=== PATIENT | male | born 1980 | race Caucasian/White ===

== ENCOUNTER 2021-08-03 12:40 | Emergency (ER) | payer OTHER, SELFPAY ==
[2021-08-03] VITALS (22 sets, daily range): BP systolic 143–183; BP diastolic 80–96; PULSE 73–92; RESP 16–18; O2SAT 96–100; BMI 36.6
--- NOTE | 2021-08-03 12:51 | XRR_ITS ---
PROCEDURE INFORMATION: Exam: XR Right Knee Exam date and time: 08/03/2021 12:51 PM Age: 40 years old Clinical indication: Pain; Knee; Right; Additional info: Right knee pain TECHNIQUE: Imaging protocol: XR Right knee. Views: 3 views. COMPARISON: No relevant prior studies available. FINDINGS: Bones/joints: There is a small joint effusion with some fluid in the suprapatellar bursa. No significant bony abnormality.. Soft tissues: Normal. XR/XR knee RT 3V* [id number] IMPRESSION: Small joint effusion. No acute bony abnormality.
--- NOTE | 2021-08-03 13:01 | ED_ITS ---
HPI - Extremity Problem General: Chief complaint: Extremity Injury, Lower Stated complaint: RIGHT KNEE PAIN S/P FALL Time Seen by Provider: 08/03/21 12:41 Course Vital Signs: Vital signs: Vital Signs Pulse Rate 74 08/03/21 12:45 Respiratory Rate 16 08/03/21 12:45 Blood Pressure 183/89 08/03/21 12:45 Pulse Oximetry 98 08/03/21 12:45 Discharge Plan Discharge Condition: Stable Coding Level of Care Code ED Registered Pharmacist for [facility]a Post
--- NOTE | 2021-08-03 13:06 | ED_ITS ---
HPI - General Adult General: Chief complaint: Extremity Injury, Lower Stated complaint: RIGHT KNEE PAIN S/P FALL Time Seen by Provider: 08/03/21 12:41 History of Present Illness: Patient is a 40-year-old male without any significant past medical history presents emergency room with complaints of right knee pain after pain off the edge of a loading dock and dropping his feet 3 feet. Patient felt a pop in his knee and since then has been unable to bear weight on the right knee. Patient denies any other focal areas of pain denies any other injuries or fall. Patient has no chest pain, shortness breath palpitation or lightheadedness prior to the episode of fall. Patient is on any blood thinner. Onset: 2 hrs ago Duration:2 hrs Location:home Severity:moderate/severe Associated symptoms: Deny chest pain, dyspnea, nausea, rash, palpitations or vomiting Review of Systems Const: Denies: fever(s) or chills Eyes: Denies: change in vision ENMT: Denies: mouth pain Card: Denies: chest pain or palpitations Resp: Denies: dyspnea or non-productive cough GI: Denies: abdominal pain, nausea, vomiting or diarrhea : Denies: dysuria Musc: Reports: extremity pain (R knee pain and swelling) Skin/Breast: Denies: rash or new lesions Neuro: Denies: weakness in extremities Psych: Reports: other (Normal mood) Bandar/Lymph: Denies: easy bruising PFSH ED PFSH: Family History (Updated 08/03/21 @ 13:08 by Miroslava Baltazar MD) Denies family history of CAD (coronary artery disease) Anesthesia complication Social History (Updated 08/03/21 @ 13:08 by Miroslava Baltazar MD) Smoking and tobacco status: never smoked Alcohol intake: never Physical Exam Const: COMMON NORMALS: alert HENMT: COMMON NORMALS: atraumatic HEAD & SCALP: atraumatic MOUTH: moist mucous membranes not abnormal Eye: COMMON NORMALS: EOMs intact bilaterally and conjunctivae normal CONJUNCTIVA: Yes conjunctivae normal Neck/C-Spine: COMMON NORMALS: full ROM and supple Resp: COMMON NORMALS: normal respiratory effort and clear to auscultation bilaterally AUSCULTATION: clear to auscultation bilaterally Cardio: COMMON NORMALS: regular rate RATE: regular rate GI: COMMON NORMALS: Soft to palpation and non-tender PALPATION: Yes Soft to palpation Extremity: NARRATIVE EXTREMITY EXAM: + Right knee tenderness to palpation, right knee swelling, decreased range of motion of right knee due to pain. Patient has 2+ DP/PT pulses on the right side, cap refill less than 3 seconds, neurovascular exam of the right lower extremity intact. No other focal area of tenderness palpation other than right knee. Neuro: SENSORIUM/ORIENTATION: Yes alert MOTOR EXAM: No Abnormal motor strength present and Other motor observations present (no focal motor deficits) Psych: COMMON NORMALS: speech normal SPEECH: Yes normal speech MOOD & AFFECT: Yes euthymic mood Course Vital Signs: Vital signs: Vital Signs Pulse Rate 92 08/03/21 15:28 Respiratory Rate 18 08/03/21 15:28 Blood Pressure 154/81 08/03/21 15:28 Pulse Oximetry 98 08/03/21 15:28 MDM - General Adult Medical Decision Making 40-year-old male presents to emergency with complaints of right knee pain and swelling. On exam, patient has right knee swelling with decreased range of motion of the right knee due to pain. Patient is neurovascularly intact. Patient felt a pop sensation after falling 3 feet. X-rays negative for any acute findings. CT of the knee is negative for any acute intra-articular lesions. With a history of pop, decision was made to order ultrasound which not show any signs of popliteal aneurysm or dissection. Patient is neurovascular intact in lower extremity. Patient is placed in a knee immobilizer with crutches. I have given patient follow up with our case folder to be seen by our outpatient Orthopedics for further evaluation of ligamentous injury. Patient aware of a call from our case folder to schedule for appointment(s) and verbalizes understanding of the importance of following up. Rx: norflex, tylenol, lidocaine patch, and menthol PRN pain Disposition: Discharge. Patient counseled regarding diagnostic impression, treatment plan. Patient given ED strict return precautions to return for continuation, worsening, or development of new symptoms. Instructed to f/u w/ Orthopedics regarding symptoms today. Patient verbalized understanding. Lab Data Radiology Impressions Knee X-Ray 08/03/21 12:51 IMPRESSION: Small joint effusion. No acute bony abnormality. Duplex Scan Lower Extremity Artery 08/03/21 13:30 IMPRESSION: 1. No gross popliteal dissection is identified. No popliteal artery aneurysm, dissection or hematoma is seen. Assessment for popliteal dissection is suboptimal with ultrasound. If there is continued clinical concern, consider CTA. 2. No hemodynamically significant stenosis is identified in the right lower extremity. Knee CT 08/03/21 13:30 IMPRESSION: 1. There appears to be wispy hemorrhage/edema adjacent to the medial and lateral collateral ligaments likely reflecting acute injury. Recommend MRI of the knee to further assess. 2. Moderate knee joint effusion. 3. Soft tissue swelling is noted anteriorly suspicious for contusion. 4. No acute fracture is identified. Imaging Data Other Imaging: Radiologist's impression: [facility] [place] [address] CT Scan Report Signed Patient: Alonzo Aleman Unit #: [id number] : 1980 Age/Sex: 40 / M ADM Date: 08/03/21 Loc: ER Room/Bed: Attending Dr: Ordering Provider/Ordering MD: Miroslava Baltazar MD Date of Service: 08/03/21 Procedure(s): CT knee RT wo con* [id number] Accession Number(s): [id number] Report Number: [id number] PROCEDURE INFORMATION: Exam: CT Right Lower Extremity Without Contrast, Knee Exam date and time: 08/03/2021 1:30 PM Age: 40 years old Clinical indication: Fall with blunt right knee trauma. Evaluate for knee fracture. TECHNIQUE: Imaging protocol: CT of the Right lower extremity without contrast was performed. Exam focused on the knee. Radiation optimization: All CT scans at this facility use at least one of these dose optimization techniques: automated exposure control; mA and/or kV adjustment per patient size (includes targeted exams where dose is matched to clinical indication); or iterative reconstruction. COMPARISON: CR (LOW EXM, ) 08/03/2021 12:57 PM RADIATION DOSE METRICS: Total DLP (mGy-cm): 487.45 FINDINGS: Bones/joints: No fracture, dislocation or subluxation. No periosteal reaction or supsicious bone lesion. Moderate knee joint effusion.? There appears to be wispy hemorrhage/edema adjacent to the medial and lateral collateral ligaments. No chondrocalcinosis is seen. Minimal degenerative changes are seen. Soft tissues: The extensor mechanism is overall intact. Soft tissue swelling is noted anteriorly suspicious for contusion. CT/CT knee RT wo con* [id number] IMPRESSION: 1. There appears to be wispy hemorrhage/edema adjacent to the medial and lateral collateral ligaments likely reflecting acute injury. Recommend MRI of the knee to further assess. 2. Moderate knee joint effusion. 3. Soft tissue swelling is noted anteriorly suspicious for contusion. 4. No acute fracture is identified.? ? Dictated By: Gume Horner Signed By: Gume Horner Signed Date/Time: 08/03/21 1452 DD/ [address] [facility] [address] Ultrasound Report Signed Patient: Alonzo Aleman Unit #: [id number] : 1980 Age/Sex: 40 / M ADM Date: 08/03/21 Loc: ER Room/Bed: Attending Dr: Ordering Provider/Ordering MD: Miroslava Baltazar MD Date of Service: 08/03/21 Procedure(s): [place] [id number] Accession Number(s): [id number] Report Number: [id number] PROCEDURE INFORMATION: Exam: US Duplex Right Lower Extremity Arteries Or Arterial Bypass Grafts Exam date and time: 08/03/2021 1:30 PM Age: 40 years old Clinical indication: Fall with blunt trauma involving the right lower extremity. Fell off of a loading dock (approximately 3 feet). [place] a pop and now cannot bear weight (per chart); evaluate for popliteal dissection/aneurysm from fall. TECHNIQUE: Imaging protocol: Right Real-time duplex scan of the arteries or arterial bypass grafts of the right lower extremity with 2-D webber scale, color Doppler flow and spectral waveform analysis. Images documented and saved. COMPARISON: CT knee RT wo con* [id number] 08/03/2021 1:55 PM FINDINGS: ?Triphasic blood flow is seen in the right common femoral, femoral, popliteal and dorsalis pedis arteries.? There is biphasic blood flow in the right posterior tibial artery. ?No gross popliteal dissection is identified. No popliteal artery aneurysm or hematoma is seen. ?The peak systolic velocity within the right external iliac artery is 95 cm/s. ?The peak systolic velocity within the right common femoral artery is 101 cm/s. ?The peak systolic velocity within the proximal right femoral artery is 87 cm/s. ?The peak systolic velocity within the mid right femoral artery is 112 cm/s. ?The peak systolic velocity within the distal right femoral artery is 77 cm/s. ?The peak systolic velocity within the right popliteal artery is 43 cm/s. ?The peak systolic velocity within the right posterior tibialis artery is 42 cm/s. ?The peak systolic velocity within the right dorsalis pedis artery is 51 cm/s. ? US/[place] [id number] IMPRESSION: 1. No gross popliteal dissection is identified. No popliteal artery aneurysm, dissection or hematoma is seen. Assessment for popliteal dissection is suboptimal with ultrasound. If there is continued clinical concern, consider CTA. 2. No hemodynamically significant stenosis is identified in the right lower extremity. ? Dictated By: Gume Horner Signed By: Gume Horner Signed Date/Time: 08/03/21 1457 DD/ [address] [address] XRay Report Signed Patient: Alonzo Aleman Unit #: [id number] : 1980 Age/Sex: 40 / M ADM Date: 08/03/21 Loc: ER Room/Bed: Attending Dr: Ordering Provider/Ordering MD: Miroslava Baltazar MD Date of Service: 08/03/21 Procedure(s): XR knee RT 3V* [id number] Accession Number(s): [id number] Report Number: [id number] PROCEDURE INFORMATION: Exam: XR Right Knee Exam date and time: 08/03/2021 12:51 PM Age: 40 years old Clinical indication: Pain; Knee; Right; Additional info: Right knee pain TECHNIQUE: Imaging protocol: XR Right knee. Views: 3 views. COMPARISON: No relevant prior studies available. FINDINGS: Bones/joints: There is a small joint effusion with some fluid in the suprapatellar bursa. No significant bony abnormality.. Soft tissues: Normal. XR/XR knee RT 3V* [id number] IMPRESSION: Small joint effusion. No acute bony abnormality. ? Dictated By: Martínez Pacheco Signed By: Martínez Pacheco Signed Date/Time: 08/03/21 1320 DD/ 1251 Discharge Plan Discharge Patient Disposition: Home Clinical Impression: Acute pain of right knee Condition: Stable Prescriptions: New Percocet 5-325 mg tablet 1 tab PO Q8H PRN (Reason: pain) Qty: 9 0RF orphenadrine citrate 100 mg tablet extended release 100 mg PO BID PRN (Reason: pain) 10 Days Qty: 20 0RF Biofreeze (menthol) 5 % gel 1 ea topical BID PRN (Reason: pain) 10 Days Qty: 1 0RF Discharge Orders: Discharge ED (Routine); Ordered 08/03/21 Ordered By: Miroslava Baltazar Discharge Diet: Advance as tolerated Discharge Activity: Limit activity as instructed Patient Instructions: Knee Pain (ED) Activity Restrictions/Additional Instructions: Our case folder will have you follow-up with Orthopedics surgery in the next few days. You would be expected to have a phone call with our case folder who will put you on the schedule. Use your knee immobilizer and crutches as instructed. Use ICE and warm compresses with the medicine for the swelling and pain. Stand Alone Forms: Work/School Release Coding Level of Care Code ED Accountant Bookkeeper for Asha Fwd Exam Comprehensive
--- NOTE | 2021-08-03 13:30 | CTR_ITS ---
PROCEDURE INFORMATION: Exam: CT Right Lower Extremity Without Contrast, Knee Exam date and time: 08/03/2021 1:30 PM Age: 40 years old Clinical indication: Fall with blunt right knee trauma. Evaluate for knee fracture. TECHNIQUE: Imaging protocol: CT of the Right lower extremity without contrast was performed. Exam focused on the knee. Radiation optimization: All CT scans at this facility use at least one of these dose optimization techniques: automated exposure control; mA and/or kV adjustment per patient size (includes targeted exams where dose is matched to clinical indication); or iterative reconstruction. COMPARISON: CR (LOW EXM, ) 08/03/2021 12:57 PM RADIATION DOSE METRICS: Total DLP (mGy-cm): 487.45 FINDINGS: Bones/joints: No fracture, dislocation or subluxation. No periosteal reaction or supsicious bone lesion. Moderate knee joint effusion. There appears to be wispy hemorrhage/edema adjacent to the medial and lateral collateral ligaments. No chondrocalcinosis is seen. Minimal degenerative changes are seen. Soft tissues: The extensor mechanism is overall intact. Soft tissue swelling is noted anteriorly suspicious for contusion. CT/CT knee RT wo con* [id number] IMPRESSION: 1. There appears to be wispy hemorrhage/edema adjacent to the medial and lateral collateral ligaments likely reflecting acute injury. Recommend MRI of the knee to further assess. 2. Moderate knee joint effusion. 3. Soft tissue swelling is noted anteriorly suspicious for contusion. 4. No acute fracture is identified.
--- NOTE | 2021-08-03 13:30 | USR_ITS ---
PROCEDURE INFORMATION: Exam: US Duplex Right Lower Extremity Arteries Or Arterial Bypass Grafts Exam date and time: 08/03/2021 1:30 PM Age: 40 years old Clinical indication: Fall with blunt trauma involving the right lower extremity. Fell off of a loading dock (approximately 3 feet). [place] a pop and now cannot bear weight (per chart); evaluate for popliteal dissection/aneurysm from fall. TECHNIQUE: Imaging protocol: Right Real-time duplex scan of the arteries or arterial bypass grafts of the right lower extremity with 2-D webber scale, color Doppler flow and spectral waveform analysis. Images documented and saved. COMPARISON: CT knee RT wo con* [id number] 08/03/2021 1:55 PM FINDINGS: Triphasic blood flow is seen in the right common femoral, femoral, popliteal and dorsalis pedis arteries. There is biphasic blood flow in the right posterior tibial artery. No gross popliteal dissection is identified. No popliteal artery aneurysm or hematoma is seen. The peak systolic velocity within the right external iliac artery is 95 cm/s. The peak systolic velocity within the right common femoral artery is 101 cm/s. The peak systolic velocity within the proximal right femoral artery is 87 cm/s. The peak systolic velocity within the mid right femoral artery is 112 cm/s. The peak systolic velocity within the distal right femoral artery is 77 cm/s. The peak systolic velocity within the right popliteal artery is 43 cm/s. The peak systolic velocity within the right posterior tibialis artery is 42 cm/s. The peak systolic velocity within the right dorsalis pedis artery is 51 cm/s. US/[place] [id number] IMPRESSION: 1. No gross popliteal dissection is identified. No popliteal artery aneurysm, dissection or hematoma is seen. Assessment for popliteal dissection is suboptimal with ultrasound. If there is continued clinical concern, consider CTA. 2. No hemodynamically significant stenosis is identified in the right lower extremity.
--- NOTE | 2021-08-03 13:47 | PC.NURSE ---
Pt states he fell out of a garage door at work. states it was 3ft high. denies hitting head. denies loc. denies blood thinners. no obvious deformity to right knee.
[2021-08-03] MEDS: acetaminophen-codeine 300-30mg Tablet 1 TAB PO (14:15)
--- NOTE | 2021-08-05 09:30 | DCPLANNER ---
Addendum entered by Nona Cardona 08/09/21 13:24: Patient had a follow up appointment scheduled for 08.06.21 with ortho - patient did not attend appointment. Original Note: manager electronic had message to schedule a follow up appointment for patient with ortho. manager electronic called the ortho clinic, spoke with Glo, gave clinic patients information. manager electronic was told that patients information would be printed and reviewed. Clinic will galina patient with appointment information.
== END 2021-08-03 15:20 | disposition home or self-care (01) ==
PROVIDERS: Emergency Provider Emergency Medicine
DX: M25.561 Pain in right knee (principal)
CPT/HCPCS: 29530; 73562; 73700; 93926; 99284

== ENCOUNTER 2021-10-15 14:47 | Emergency (ER) | payer BC, SELFPAY ==
[2021-10-15 15:25] VITALS: BP 181/99; PULSE 91; RESP 20; TEMP 36.7; O2SAT 96; BMI 37.3
--- NOTE | 2021-10-15 15:42 | XRR_ITS ---
PROCEDURE INFORMATION: Exam: XR Right Knee Exam date and time: 10/15/2021 4:02 PM Age: 40 years old Clinical indication: Injury or trauma; Other: Not specified; Blunt trauma; Knee; Right; Additional info: Trauma/injury TECHNIQUE: Imaging protocol: XR Right knee. Views: 3 views. COMPARISON: CT knee RT wo con* [id number] 08/03/2021 1:55 PM FINDINGS: Bones/joints: Osseous structures are intact. Negative for fracture. Joint spaces are preserved. Joint effusion present. Soft tissues: Normal. XR/XR knee RT 3V* [id number] IMPRESSION: No acute osseous abnormalities. Joint effusion present.
--- NOTE | 2021-10-15 15:55 | W.ED.EXTPRO ---
HPI - Extremity Problem General: Chief complaint: Extremity Injury, Lower Stated complaint: right leg injury Time Seen by Provider: 10/15/21 15:55 Source: patient Mode of arrival: other (Using crutches) Limitations: no limitations History of Present Illness: 40-year-old male presents emergency room he had right knee surgery about 7 weeks ago. He wore the brace for 6 weeks he been out of it for the last week and he tripped over an object felt like he twisted the right knee with an inversion type injury he is gone back to wearing the brace and using the crutches pain with weightbearing no other injuries he is try to contact orthopedic doctor but was unable to get a hold of him today. Complaint: joint pain Onset (ago): day(s) Pain Consistency: constant Location: right Quality: aching Radiation: none Relieving factors: immobilization and elevation Exacerbating factors: range of motion, weight bearing, walking and palpation Associated symptoms: Deny arthralgias, chest pain, fever(s), myalgias, rash or short of breath Review of Systems Const: Denies: fever(s) or chills ENMT: Denies: throat pain, ear or mastoid pain, nasal discharge or nasal congestion Card: Denies: chest pain Resp: Denies: dyspnea, productive cough or non-productive cough GI: Denies: abdominal pain, nausea, vomiting, hematemesis, coffee ground emesis, diarrhea, constipation, bloating, hematochezia or melena : Denies: flank pain, dysuria, urinary frequency or urinary urgency Skin/Breast: Denies: rash PFSH ED PFSH: Family History (Updated 08/03/21 @ 13:08 by Miroslava Baltazar MD) Denies family history of CAD (coronary artery disease) Anesthesia complication Social History (Updated 08/03/21 @ 13:08 by Miroslava Baltazar MD) Smoking and tobacco status: never smoked Alcohol intake: never Physical Exam Const: COMMON NORMALS: no acute distress GENERAL APPEARANCE: cooperative and comfortable ORIENTATION/CONSCIOUSNESS: Yes awake, Yes oriented to person, Yes oriented to place and Yes oriented to time HENMT: COMMON NORMALS: normocephalic, atraumatic and hearing grossly normal bilaterally HEAD & SCALP: normocephalic and atraumatic Neck/C-Spine: COMMON NORMALS: no JVD Resp: COMMON NORMALS: normal respiratory effort, No retractions, No use of accessory muscles and clear to auscultation bilaterally AUSCULTATION: clear to auscultation bilaterally Cardio: COMMON NORMALS: no JVD, regular rate, regular rhythm and No murmurs present (Cardio) RATE: regular rate RHYTHM: regular rhythm GI: COMMON NORMALS: Soft to palpation and No hepatosplenomegaly present AUSCULTATION: Yes normoactive bowel sounds PALPATION: Yes Soft to palpation, No Tenderness to palpation present (GI), No Guarding due to palpation present (GI) and Yes No hepatosplenomegaly present Extremity: OTHER: Moderate right joint knee effusion no bruising no deformity x-ray unremarkable. Neuro: SENSORIUM/ORIENTATION: Yes oriented to person, Yes oriented to place and Yes oriented to time Skin: COMMON NORMALS: no rashes or lesions noted GENERAL SKIN EXAM: no rashes or lesions noted Course Vital Signs: Vital signs: Vital Signs Temperature 98.1 F 10/15/21 15:25 Pulse Rate 91 10/15/21 15:25 Respiratory Rate 20 H 10/15/21 15:25 Blood Pressure 181/99 10/15/21 15:25 Pulse Oximetry 96 10/15/21 15:25 MDM - Extremity (Nontraumatic) Medical Decision Making Nonweightbearing with brace and follow-up with orthopedics to be cleared. If persists may need further advanced imaging per discretion of orthopedics use previously prescribed pain medications. Can use diclofenac which is given today as well. Medical Records I reviewed the patient's medical records. Lab Data Radiology Impressions Knee X-Ray 10/15/21 15:42 IMPRESSION: No acute osseous abnormalities. Joint effusion present. Discharge Plan Discharge Patient Disposition: Home Clinical Impression: Sprain of right knee Condition: Stable Prescriptions: New diclofenac sodium 75 mg tablet,delayed release (DR/EC) 75 mg PO Q12H PRN (Reason: pain) Qty: 20 0RF No Action Percocet 5-325 mg tablet 1 tab PO Q8H PRN (Reason: pain) Qty: 9 0RF Discharge Orders: Discharge ED (Routine); Ordered 10/15/21 Ordered By: Brandon Mckenzie Referrals: Farhan Park DO [Primary Care Provider] - Discharge Activity: Limit activity as instructed and Use walker/crutches as instructed Patient Instructions: Opioid Safety Activity Restrictions/Additional Instructions: Wear knee brace and use crutches until you follow-up with orthopedist. You should be totally nonweightbearing on the right leg until released by orthopedics. Coding Level of Care Code ED Gallery Or Museum Curator for [facility] Post
== END 2021-10-15 16:26 | disposition home or self-care (01) ==
PROVIDERS: Emergency Provider Family Medicine; PCP Family Medicine
DX: S83.91XA Sprain of unspecified site of right knee, initial encounter (principal); X58.XXXA Exposure to other specified factors, initial encounter
CPT/HCPCS: 73562; 99282

== ENCOUNTER 2023-10-26 03:14 | Emergency (ER) | payer SELFPAY ==
[2023-10-26] VITALS (9 sets, daily range): BP systolic 143–168; BP diastolic 88–115; PULSE 88–129; RESP 15–20; TEMP 36.6; O2SAT 91–97; BMI 38.0
--- NOTE | 2023-10-26 03:16 | XRR_ITS ---
PROCEDURE INFORMATION: Exam: XR Chest Exam date and time: 10/26/2023 3:19 AM Age: 42 years old Clinical indication: Chest pressure; Patient HX: C/O chest pain. Afib on monitor. TECHNIQUE: Imaging protocol: Radiologic exam of the chest. Views: 1 view. COMPARISON: CR XR chest 2V* [id number] 06/14/2019 2:43 AM FINDINGS: Lungs: No consolidation or pulmonary edema. Pleural spaces: No pleural effusion. No pneumothorax. Heart/Mediastinum: Cardiomediastinal silhouette is normal in size. Bones/joints: No acute fractures. XR/XR chest 1V portable [id number] IMPRESSION: No acute findings.
--- NOTE | 2023-10-26 03:17 | ECG_ITS ---
[facility] Test Date: 2023-10-26 Pat Name: Alonzo Aleman Department: Room: Gender: Male Campus Manager: : 1980 Requested By: Jorge L Dominguez Order Number: [id number] Reading MD: Lamin Jules M.D. Measurements Intervals [place] Rate: 127 P: 0 SD: 0 QRS: 28 QRSD: 110 T: 35 QT: 307 QTc: 446 Interpretive Statements ATRIAL FIBRILLATION WITH RAPID VENTRICULAR RESPONSE MODERATE ST DEPRESSION [0.05+ mV ST DEPRESSION] No previous ECG available for comparison Electronically Signed On 10-26-2023 15:02:30 CDT by Lamin Jules M.D. [email or web address]
--- NOTE | 2023-10-26 03:25 | ED_ITS ---
HPI - Arrhythmia/Palpitations 2 General: Chief Complaint: Arrhythmia/Palpitations Stated Complaint: cp Time Seen by Provider: 10/26/23 03:14 History of Present Illness: Patient presents to the ER with complaints of weird feeling in his chest with his heart racing and beating irregular. Patient says you woke up this morning like this. Patient does not have any cardiac history. However upon further questioning he may have had something like this happen once approximately 10 years ago. Patient is on any blood pressure or heart rate and rhythm medicine. Patient denies CAD, NC, CHF, nausea vomiting diarrhea coughs colds fevers shortness of breath, diaphoresis, Review of Systems 2 General: Reports: 10 or more systems reviewed and unremarkable except in HPI and below PFSH ED 2 PFSH: Family History Denies family history of CAD (coronary artery disease) Anesthesia complication Social History Smoking and tobacco/nicotine status: never used tobacco/nicotine Alcohol intake: never Substance/Drug Use: never Physical Exam 2 Const: COMMON NORMALS: no acute distress, average body habitus, patient oriented x3, no limitations, healthy appearing, alert and well nourished HENMT: COMMON NORMALS: normocephalic, atraumatic, hearing grossly normal bilaterally, external ears normal, Normal external nose present, moist oral mucous membranes and oropharynx normal HEAD & SCALP: normocephalic and atraumatic NOSE: Normal external nose present EXTERNAL EAR: Yes external ears normal Neck/C-Spine: COMMON NORMALS: no JVD Chest: COMMONS NORMALS: normal inspection of the chest and normal palpation of entire chest wall Resp: COMMON NORMALS: normal respiratory effort, No retractions, No use of accessory muscles and clear to auscultation bilaterally AUSCULTATION: clear to auscultation bilaterally Cardio: COMMON NORMALS: no JVD, S1 normal heart sound present, S2 normal heart sound present, No gallops present (Cardio), No clicks present (Cardio), No murmurs present (Cardio) and No rub (Cardio); negative for regular rate (Irregularly irregular rhythm tachycardia) and negative for regular rhythm RATE: abnormal rate (Irregularly irregular rhythm tachycardia) RHYTHM: abnormal rhythm HEART SOUNDS: S1 normal heart sound present and S2 normal heart sound present GI: COMMON NORMALS: Normal to inspection, nondistended, normoactive bowel sounds present, Soft to palpation, non-tender, No hepatosplenomegaly present and no masses PALPATION: Yes Soft to palpation and Yes No hepatosplenomegaly present Neuro: COMMON NORMALS: patient oriented x3 SENSORIUM/ORIENTATION: Yes alert Course 2 Vital Signs: Vital signs: Vital Signs Temperature 97.8 F 10/26/23 03:20 Pulse Rate 104 H 10/26/23 04:45 Respiratory Rate 19 H 10/26/23 04:45 Blood Pressure 147/101 10/26/23 04:31 Pulse Oximetry 92 10/26/23 04:45 Oxygen Delivery Me thod Room Air 10/26/23 03:20 MDM - Arrhythmia/Palpitations Medical Decision Making Patient presented an EKG was obtained that showed A-fib with RVR at a rate 127 bpm. Patient was given Cardizem bolus of 20 mg which slowed his heart rate down to approximately 100 beats a minute. The patient was still in A-fib. Patient was started on a Cardizem drip and eventually converted to sinus rhythm. Lab work was obtained which was essentially benign. Patient was titrated off Cardizem drip and maintained sinus rhythm. Patient will be discharged home. A consult will be placed to case management for cardiology referral. Differential Diagnosis Likely palpitations and artial fibrillation Medical Records I reviewed the patient's medical records. Lab Data I reviewed the patient's lab results. 10/26/23 03:26 10/26/23 03:26 Radiology Impressions Chest X-Ray 10/26/23 03:16 IMPRESSION: No acute findings. Laboratory Results WBC 10.10 10^3/uL (3.29-11.43) 10/26/23 03:26 RBC 5.87 10^6/uL (3.85-5.65) H 10/26/23 03:26 Hgb 16.90 g/dL (11.27-16.99) 10/26/23 03:26 Hct 50.5 % (37-53) 10/26/23 03:26 MCV 86.0 fl (82-101) 10/26/23 03:26 MCH 28.8 pg (27-33) 10/26/23 03:26 MCHC 33.5 g/dL (30-55) 10/26/23 03: RDW 12.4 % (12.1-15.1) 10/26/23 03:26 Plt Count 269 10^3/cmm (157-399) 10/26/23 03:26 MPV 9.6 fL (7.4-10.4) 10/26/23 03:26 Neut % (Auto) 42.6 % 10/26/23 03: Lymph % (Auto) 48.1 % 10/26/23 03:26 [place] % (Auto) 6.6 % 10/26/23 03:26 Eos % (Auto) 2.2 % 10/26/23 03:26 Baso % (Auto) 0.3 % 10/26/23 03: Neut # (Auto) 4.30 10^3/uL (1.8-7.7) 10/26/23 03: Lymph # (Auto) 4.9 10^3/uL (0.8-4.8) H 10/26/23 03:26 [place] # (Auto) 0.7 10^3/uL (0.2-0.9) 10/26/23 03:26 Eos # (Auto) 0.2 10^3/uL (0.0-0.8) 10/26/23 03:26 Baso # (Auto) 0.0 10^3/uL (0.0-0.1) 10/26/23 03:26 Nucleated RBC % (auto) 0 % 10/26/23 03: Nucleated RBCs # 0.0 /100WBC 10/26/23 03: PT 12.50 SECONDS (12.1-14.9) 10/26/23 03:26 INR 0.91 (0.8-1.2) 10/26/23 03:26 Sodium 142 mmol/L (136-145) 10/26/23 03:26 Potassium 3.5 mmol/L (3.5-5.1) 10/26/23 03:26 Chloride 103 mmol/L (98-107) 10/26/23 03:26 Carbon Dioxide 24 mmol/L (22-29) 10/26/23 03:26 Anion Gap 18.5 (5-19) 10/26/23 03:26 BUN 9 mg/dL (6-20) 10/26/23 03:26 Creatinine 0.6 mg/dL (0.7-1.2) L 10/26/23 03:26 GFR Calculation 146.4 mL/min (90-130) H 10/26/23 03:26 Glucose 96 mg/dL (65-115) 10/26/23 03:26 Calculated Osmolality 293 mOsm/kg (285-295) 10/26/23 03:26 Calcium 9.4 mg/dL (8.5-10.5) 10/26/23 03:26 Magnesium 2.1 mg/dL (1.7-2.3) 10/26/23 03:26 Total Bilirubin 0.4 mg/dL (0.15-1.2) 10/26/23 03:26 AST 36 U/L (0-40) 10/26/23 03:26 ALT 43 U/L (0-41) H 10/26/23 03:26 Alkaline Phosphatase 140 U/L (40-130) H 10/26/23 03:26 Troponin T Baseline 7 ng/L (0-15) 10/26/23 03:26 Total Protein 8.3 g/dL (6.6-8.7) 10/26/23 03:26 Albumin 5.1 g/dL (3.5-5.2) 10/26/23 03:26 Globulin 3.2 g/dL (1.3-4.6) 10/26/23 03:26 TSH 1.74 uIU/mL (0.27-4.20) 10/26/23 03:26 All radiology interpretation(s) finalized by discharge EKG Data EKG 1: I personally reviewed and interpreted this EKG as follows: EKG interpretation date: 10/26/23 EKG interpretation time: 03:17 Interpretation: Ventricular rate 127 beats minute, QRS duration 110, QTc of 382, A-fib with RVR, Other EKG comments: Chest X-Ray 10/26/23 03:16 IMPRESSION: No acute findings. EKG 2: I personally reviewed and interpreted this EKG as follows: EKG interpretation date: 10/26/23 EKG interpretation time: 04:49 Prior EKG tracings: available for review Interpretation: Ventricular rate 90 bpm, CT interval 157, QRS duration 113, QTc of 412, sinus rhythm, Other EKG comments: Chest X-Ray 10/26/23 03:16 IMPRESSION: No acute findings. Discharge Plan Discharge Patient Disposition: Home Clinical Impression: Atrial fibrillation with RVR Condition: Stable Prescriptions: No Action Percocet 5-325 mg tablet 1 tab PO Q8H PRN (Reason: pain) Qty: 9 0RF diclofenac sodium 75 mg tablet,delayed release (DR/EC) 75 mg PO Q12H PRN (Reason: pain) Qty: 20 0RF Discharge Orders: Discharge ED (Routine); Ordered 10/26/23 Ordered By: Jorge L Dominguez Referrals: Farhan Park DO [Primary Care Provider] - 1 week Patient Instructions: Atrial Fibrillation Activity Restrictions/Additional Instructions: Your evaluation in ER showed your heart was in a condition called atrial fibrillation. We gave you medicine called Cardizem and converted back to normal sinus rhythm. You will need to follow-up with cardiology for further evaluation testing and possible medication change or management. If your heart goes back into this abnormal rhythm or you develop chest pain before your appointment please feel free to return to the ER. [facility] has been consulted they will be calling you to set you up an appointment with cardiology. Coding Level of Care Code ED Sap Project Manager for Asha Post
[2023-10-26] MEDS: dilTIAZem 5 mg/mL SDV 5 mL 20 MG IVP (03:28)
[2023-10-26 03:30] LABS: Basophils % 0.3 %; Eosinophils # 0.2 10^3/uL (0.0-0.8); Eosinophils % 2.2 %; Hematocrit 50.5 % (37-53); Lymphocytes # 4.9 10^3/uL (0.8-4.8); Lymphocytes % 48.1 %; Mean Corpuscular HGB Conc 33.5 g/dL (30-55); Mean Corpuscular Hemoglobin 28.8 pg (27-33); Mean Platelet Volume 9.6 fL (7.4-10.4); Monocytes # 0.7 10^3/uL (0.2-0.9); Monocytes % 6.6 %; Neutrophils % 42.6 %; Nucleated Red Blood Cells % 0 %; Platelet Count 269 10^3/cmm (157-399); Red Blood Count 5.87 10^6/uL (3.85-5.65); Red Cell Distribution Width 12.4 % (12.1-15.1)
[2023-10-26 03:43] LABS: INR 0.91 (0.8-1.2)
[2023-10-26 03:48] LABS: Troponin(5th) Baseline 7 ng/L (0-15)
[2023-10-26] MEDS: dilTIAZem 100 MG in sodium chloride 0.9% (add-van) 100 ML IV (03:54)
[2023-10-26 04:02] LABS: Alanine Aminotransferase 43 U/L (0-41); Albumin Level 5.1 g/dL (3.5-5.2); Alkaline Phosphatase 140 U/L (40-130); Anion Gap 18.5 (5-19); Aspartate Amino Transferase 36 U/L (0-40); Blood Urea Nitrogen 9 mg/dL (6-20); Calcium 9.4 mg/dL (8.5-10.5); Carbon Dioxide 24 mmol/L (22-29); Chloride 103 mmol/L (98-107); Creatinine Clr Calc Pharmacy 216.3609; Globulin 3.2 g/dL (1.3-4.6); Glomerular Filtration Rate 146.4 mL/min (90-130); Glucose 96 mg/dL (65-115); Magnesium 2.1 mg/dL (1.7-2.3); Osmolality Calculated 293 mOsm/kg (285-295); Potassium 3.5 mmol/L (3.5-5.1); Sodium 142 mmol/L (136-145); Thyroid Stimulating Hormone 1.74 uIU/mL (0.27-4.20); Total Bilirubin 0.4 mg/dL (0.15-1.2); Total Protein 8.3 g/dL (6.6-8.7)
--- NOTE | 2023-10-26 04:49 | ECG_ITS ---
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 Measurements Intervals [place] Rate: 98 P: 26 VA: 157 QRS: 38 QRSD: 113 T: 18 QT: 357 QTc: 457 Interpretive Statements SINUS RHYTHM INCOMPLETE RIGHT BUNDLE BRANCH BLOCK [90+ ms QRS DURATION, TERMINAL R IN V1/V2, 40+ ms S IN I/aVL/V4/V5/V6] No previous ECG available for comparison Electronically Signed On 10-26-2023 15:06:57 CDT by Lamin Jules M.D. [id number]
[2023-10-26 05:15] LABS: Troponin 5 2HR 8.18 ng/L (0-15); Troponin 5 2HR Delta 1.18 ABS# (0-10)
[2023-10-26] MEDS: cloNIDine 0.1 mg Tablet 0.100000000000000006 MG PO (05:32)
--- NOTE | 2023-10-26 07:46 | DCPLANNER ---
Message sent to Cardiology for A fib and RVR
== END 2023-10-26 05:35 | disposition home or self-care (01) ==
PROVIDERS: Emergency Provider Emergency Medicine; PCP Family Medicine
DX: I48.20 Chronic atrial fibrillation, unspecified (principal)
CPT/HCPCS: 71045; 80053; 83735; 84443; 84484; 85025; 85610; 93005; 96365; 96375; 99285; J3490

== ENCOUNTER → 2024-02-02 13:42 | Outpatient (BNVA) | payer OTHER, SELFPAY | PROVIDERS: PCP Family Medicine Adult Medicine; Visit Provider Internal Medicine | DX: R07.9 Chest pain, unspecified (principal) | CPT/HCPCS: 93005 ==

== ENCOUNTER 2024-03-03 13:45 | Outpatient (CLI) | payer OTHER, SELFPAY ==
--- NOTE | 2024-03-03 13:45 | USCV_ITS ---
Alonzo Aleman Age: 43 Gender: M : 1980 Exam Date: 03/03/2024 14:01 Ordering Phys: Al Davis M.D ([email or web address]) Technologist: Exam Location: [facility] [place] Indication: htn BP: 138 / 90 HR: 73 Rhythm: Sinus Technical Quality: Adequate MEASUREMENTS (Male / Female) Normal Values 2D ECHO LV Diastolic Diameter PLAX 4.9 cm 4.2 - 5.9 / 3.9 - 5.3 cm IVS Diastolic Thickness 1.2 cm 0.6 - 1.0 / 0.6 - 0.9 cm IVS Systolic Thickness 2.0 cm LVPW Diastolic Thickness 1.3 cm 0.6 - 1.0 / 0.6 - 0.9 cm LVPW Systolic Thickness 1.5 cm LVOT Diameter 2.0 cm LV Ejection Fraction 2D Teich 67.0 % LV Ejection Fraction MOD 4C 60.1 % LV Ejection Fraction MOD 2C 59.5 % LV Ejection Fraction 2C AL 59.4 % LA Diameter 3.8 cm Aorta at Sinotubular Diameter 3.2 cm IVC Diameter 2.5 cm M-MODE LA Ao Ratio MM 1.4 AV Cusp Separation MM 2.7 cm DOPPLER AV Peak Velocity 162.0 cm/s LVOT Peak Velocity 88.0 cm/s AV Area Cont Eq vti 2.3 cm squared AV Area Cont Eq pk 1.7 cm squared MV Peak Velocity 116.0 cm/s MV Area PHT 4.2 cm squared Mitral E to A Ratio 1.2 TR Peak Velocity 281.0 cm/s TR Peak Gradient 31.6 mmHg TV Peak E Velocity 78.0 cm/s Right Atrial Pressure 3.0 mmHg Pulmonary Artery Systolic Pressu 34.6 mmHg PV Peak Velocity 130.0 cm/s FINDINGS Left Ventricle Left ventricle is normal in size. LV systolic function is normal with EF of 60 to 65%. No regional wall motion abnormalities are seen. Right Ventricle The right ventricle is normal in size and function. Right Atrium The right atrium is normal in size. Left Atrium The left atrium is normal in size. Mitral Valve Structurally normal mitral valve . Trace mitral regurgitation. Aortic Valve Structurally normal aortic valve. No significant stenosis or regurgitation. Tricuspid Valve Mild tricuspid regurgitation. Pulmonary artery systolic pressure is 30 to 35 mmHg. Pulmonic Valve Not well-visualized. Pericardium Normal pericardium without effusion. Aorta Normal ascending aorta dimension. IVC The inferior vena cava appears normal. CONCLUSIONS LV systolic function is normal with EF of 60 to 65%. Trace mitral regurgitation Mild tricuspid regurgitation No comparison studies are available. Al Davis MD (Electronically Signed) Final Date: 07 March 2024 17:41 S
== END 2024-03-03 13:46 | disposition home or self-care (01) ==
PROVIDERS: PCP Family Medicine Adult Medicine; Visit Provider Internal Medicine
DX: R07.9 Chest pain, unspecified (principal); R06.02 Shortness of breath
CPT/HCPCS: 93306

== ENCOUNTER → 2024-03-08 13:45 | Outpatient (BNVA) | payer OTHER, SELFPAY | PROVIDERS: PCP Family Medicine Adult Medicine; Visit Provider Nurse Practitioner Family | DX: M25.562 Pain in left knee (principal) | CPT/HCPCS: 73562 ==

== ENCOUNTER → 2024-03-14 14:00 | Outpatient (BNVA) | payer OTHER, SELFPAY | PROVIDERS: PCP Family Medicine Adult Medicine; Visit Provider Nurse Practitioner | DX: M17.12 Unilateral primary osteoarthritis, left knee (principal); M25.561 Pain in right knee | CPT/HCPCS: 73560; 73565 ==

== ENCOUNTER 2024-03-29 06:51 | Outpatient (CLI) | payer OTHER, SELFPAY ==
[2024-03-29 06:55] VITALS: BMI 40.0
--- NOTE | 2024-03-29 06:58 | NMCV_ITS ---
NM nicole perf SPECT r/s* [id number] Alonzo Aleman Age: 43 Gender: M : 1980 Exam Date: 03/29/2024 06:58 Ordering Phys: Al Davis M.D ([email or web address]) Technologist: TOMAS Locke Exam Location: [facility] Indications: CP STRESS TEST Please see separate stress test report in [facility] for full findings IMAGE PROTOCOL Rest/Stress 1 Exercise Day Radiopharmaceutical Dose (mCi) Administration Site Administered by Rest: Tc-99m 10.9 IV TOMAS Locke Stress:Tc-99m 31.1 IV TOMAS Locke Rest: 29-Mar-2024 60 Discovery 630 Stress: 29-Mar-2024 30 Discovery 630 Radiopharmaceutical was injected at 85 % maximum heart rate. Images obtained in supine and prone position. SPECT RESULTS Technical Quality: Good Raw Data Analysis: Normal Image Corrections: No attenuation or motion correction applied Summed Stress Score: 0 Summed Rest Score: 0 Summed Difference Score: 0 PERFUSION FINDINGS SPECT images demonstrate homogeneous tracer distribution throughout the myocardium. FUNCTIONAL RESULTS (calculated via Gated SPECT) Stress Image LV EF (%): 80 Stress EDV (mL):129 TID: 0.69 Stress ESV (mL):26 FUNCTIONAL FINDINGS: There is normal left ventricular systolic function. IMPRESSIONS 1. Normal myocardial perfusion imaging with no evidence of ischemia 2. LV systolic function is normal Al Davis MD (Electronically Signed) Final Date: 29 March 2024 11:57 S
--- NOTE | 2024-03-29 06:58 | ECG_ITS ---
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 Interpretive Statements EXERCISE SESTAMIBI STRESS TEST EXERCISE DATA: The patient was exercised by Keyur protocol. Baseline heart rate was 82 beats per minute. Baseline blood pressure was 183/105 millimeters of mercury. Maximal predicted heart rate was 175 beats per minute. Maximum heart rate achieved was 159 which was 90% of the maximum predicted heart rate. Maximum blood pressure was 211/91 millimeters of mercury. Total exercise time was 9 minutes 30 seconds. Maximum METs achieved was 12.5. The reason for ending the test was completion of protocol. The patient complained of shortness of breath during the stress test, which then resolved at the end of the test. ELECTROCARDIOGRAM: BASELINE: Showed sinus rhythm, normal axis, no significant ST-T changes at the baseline noted. [] EXERCISE: At the peak exercise level, [] No significant ST-T changes suggestive of ischemia noted. [] RECOVERY: During the recovery period, heart rate dropped appropriately. No significant ST-T changes in the recovery suggestive of ischemia noted. [] CONCLUSION: 1. Exercise capacity is excellent 2. Heart rate response was appropriate 3. Blood pressure response was hypertensive. 4. Symptoms not suggestive of ischemia. 5. Electrocardiogram portion of the stress test was not suggestive of ischemia. 6. Nuclear scan will be documented separately. Electronically Signed On 04-02-2024 19:05:48 CDT by Al Davis M.D. [email or web address]
[2024-03-29 09:38] VITALS: BP 154/68; PULSE 97
== END 2024-03-29 06:52 | disposition home or self-care (01) ==
PROVIDERS: PCP Family Medicine Adult Medicine; Visit Provider Internal Medicine
DX: R07.9 Chest pain, unspecified (principal); R06.02 Shortness of breath
CPT/HCPCS: 36415; 78452; 93017; A9500